=== PATIENT | female | born 1970 | race Caucasian/White ===

== ENCOUNTER → 2022-10-05 | Day surgery (SDC) | payer OTHER | END | disposition home or self-care (01) | LOC: FMAMMOTONE 08:46 | PROVIDERS: ATTEND Physician Assistant | PROC: 0HBT3ZX Excision of Right Breast, Percutaneous Approach, Diagnostic (ICD-10-PCS; principal; 2022-10-05) | DX: N60.11 Diffuse cystic mastopathy of right breast (principal); N60.31 Fibrosclerosis of right breast; N64.89 Other specified disorders of breast; R92.0 Mammographic microcalcification found on diagnostic imaging of breast | CPT/HCPCS: 19081; 76098-TC-FY; 87899; 88305-TC; A4648 ==